=== PATIENT | male | born 1990 | race Caucasian/White ===

== ENCOUNTER 2018-05-29 10:36 | Emergency (ER) | payer SELFPAY ==
--- OUTSIDE RECORDS SUMMARY | 2018-05-29 10:39 | XMS REPORT ---
:1990 Author Organization [facility] Address [address] [place] [address] Dr. Parisi [address] [place] [address] Care Team Providers Name Role Phone CARLA GARCIA CHEYANNE Unavailable Unavailable Problems This patient has no known problems. Allergies, Adverse Reactions, Alerts This patient has no known allergies or adverse reactions. Medications This patient has no known medications. Results Test Description Test Time Test Comments Text Results Atomic Results Result Comments ANAEROBIC CULTURE 2017-07-01 17:00:00 Test Item Value Reference Range Comments CULTURE (BEAKER) (test xbdb=1828) No anaerobes isolated SURGICALLY OBTAINED CULTURE + GRAM [id number] 17:50:00 Test Item Value Reference Range Comments CULTURE (BEAKER) (test qwqd=9573) Clindamycin (test code=10) Erythromycin (test code=4) Linezolid (test code=40) Nitrofurantoin (test code=23) Oxacillin (test code=14) Rifampin (test code=43) Tetracycline (test code=2) Trimethoprim + Sulfamethoxazole (test code=47) Vancomycin (test code=13) CULTURE (BEAKER) (test 4+ Methicillin resistant hgfs=3902) Staphylococcus aureus GRAM STAIN RESULT (BEAKER) No White blood (test kbis=0484) cells seen GRAM STAIN RESULT (BEAKER) 1+ gram positive (test zbnf=[id number]) cocci in pairs VANCOMYCIN LEVEL, [id number] 10:46:00 Test Item Value Reference Range Comments VANCOMYCIN TROUGH (BEAKER) (test kfnv=891) 12.2 ug/mL 10.0-20.0 CBC W/PLT COUNT & AUTO [id number] 06:03:00 Test Item Value Reference Range Comments WHITE BLOOD CELL COUNT (BEAKER) (test tjip=774) 13.9 K/ L 3.5-10.5 RED BLOOD CELL COUNT (BEAKER) (test nnat=669) 3.96 M/ L 4.63-6.08 HEMOGLOBIN (BEAKER) (test lixa=742) 12.2 GM/DL 13.7-17.5 HEMATOCRIT (BEAKER) (test uhdt=822) 37.0 % 40.1-51.0 MEAN CORPUSCULAR VOLUME (BEAKER) (test imuu=826) 93.4 fL 79.0-92.2 MEAN CORPUSCULAR HEMOGLOBIN (BEAKER) (test 30.8 pg 25.7-32.2 nqjs=832) MEAN CORPUSCULAR HEMOGLOBIN CONC (BEAKER) (test 33.0 GM/DL 32.3-36.5 wsgl=691) RED CELL DISTRIBUTION WIDTH (BEAKER) (test 12.3 % 11.6-14.4 ycho=689) PLATELET COUNT (BEAKER) (test wgme=947) 294 K/CU MM 150-450 MEAN PLATELET VOLUME (BEAKER) (test yehr=073) 10.0 fL 9.4-12.4 NUCLEATED RED BLOOD CELLS (BEAKER) (test 0 /100 WBC 0-0 cmux=657) NEUTROPHILS RELATIVE PERCENT (BEAKER) (test 77 % riwx=726) LYMPHOCYTES RELATIVE PERCENT (BEAKER) (test 12 % jzeo=025) MONOCYTES RELATIVE PERCENT (BEAKER) (test 10 % iwfy=035) EOSINOPHILS RELATIVE PERCENT (BEAKER) (test 0 % addm=603) BASOPHILS RELATIVE PERCENT (BEAKER) (test 0 % afnv=188) NEUTROPHILS ABSOLUTE COUNT (BEAKER) (test 10.71 K/ L 1.78-5.38 podm=250) LYMPHOCYTES ABSOLUTE COUNT (BEAKER) (test 1.70 K/ L 1.32-3.57 susn=770) MONOCYTES ABSOLUTE COUNT (BEAKER) (test 1.32 K/ L 0.30-0.82 geoq=448) EOSINOPHILS ABSOLUTE COUNT (BEAKER) (test 0.04 K/ L 0.04-0.54 yeqk=772) BASOPHILS ABSOLUTE COUNT (BEAKER) (test 0.03 K/ L 0.01-0.08 uhmi=675) IMMATURE GRANULOCYTES-RELATIVE PERCENT (BEAKER) 0 % 0-1 (test pztp=0381) BASIC METABOLIC [id number] 05:40:00 Test Item Value Reference Range Comments SODIUM (BEAKER) (test 137 meq/L 136-145 irmg=907) POTASSIUM (BEAKER) (test 4.4 meq/L 3.5-5.1 Specimen slightly xnqj=961) hemolyzed CHLORIDE (BEAKER) (test 103 meq/L 98-107 grzw=773) CO2 (BEAKER) (test 27 meq/L 22-29 ggjy=084) BLOOD UREA NITROGEN 11 mg/dL 7-21 (BEAKER) (test iddi=052) CREATININE (BEAKER) (test 0.80 mg/dL 0.57-1.25 Specimen slightly pqza=541) hemolyzed GLUCOSE RANDOM (BEAKER) 115 mg/dL 70-105 (test opoc=286) CALCIUM (BEAKER) (test 8.8 mg/dL 8.4-10.2 lxbo=916) EGFR (BEAKER) (test 114 mL/min/1.73 sq m ESTIMATED GFR IS NOT vopx=6631) ACCURATE CREATININE CLEARANCE IN PREDICTING GLOMERULAR FILTRATION RATE. ESTIMATED GFR IS NOT APPLICABLE FOR DIALYSIS PATIENTS. [id number] 00:47:00 Test Item Value Reference Range Comments PROTIME (BEAKER) (test qjfl=655) 13.8 seconds 11.7-14.7 INR (BEAKER) (test juzx=030) 1.1 <=5.9 PARTIAL THROMBOPLASTIN TIME (BEAKER) (test 31.4 seconds 22.5-36.0 saql=100) RECOMMENDED COUMADIN/WARFARIN INR THERAPY RANGESSTANDARD DOSE: 2.0 - 3.0 Includes: PROPHYLAXIS forvenous thrombosis, systemic embolization; TREATMENT for venous thrombosis and/or pulmonary embolus.HIGH RISK: Target INR is 2.5-3.5 for patients with mechanical heart valves.BASIC METABOLIC [id number] 00:45: 00 Test Item Value Reference Range Comments SODIUM (BEAKER) (test 135 meq/L 136-145 zbfn=488) POTASSIUM (BEAKER) (test 4.5 meq/L 3.5-5.1 pimy=338) CHLORIDE (BEAKER) (test 102 meq/L 98-107 buyl=734) CO2 (BEAKER) (test 24 meq/L 22-29 rnvt=912) BLOOD UREA NITROGEN 15 mg/dL 7-21 (BEAKER) (test xkoj=977) CREATININE (BEAKER) (test 0.77 mg/dL 0.57-1.25 osaw=256) GLUCOSE RANDOM (BEAKER) 112 mg/dL 70-105 (test gomp=725) CALCIUM (BEAKER) (test 8.6 mg/dL 8.4-10.2 stue=605) EGFR (BEAKER) (test 119 mL/min/1.73 sq m ESTIMATED GFR IS NOT qqbb=6678) ACCURATE CREATININE CLEARANCE IN PREDICTING GLOMERULAR FILTRATION RATE. ESTIMATED GFR IS NOT APPLICABLE FOR DIALYSIS PATIENTS. CBC W/PLT COUNT & AUTO [id number] 00:35:00 Test Item Value Reference Range Comments WHITE BLOOD CELL COUNT (BEAKER) (test uaau=907) 16.0 K/ L 3.5-10.5 RED BLOOD CELL COUNT (BEAKER) (test dndo=489) 4.22 M/ L 4.63-6.08 HEMOGLOBIN (BEAKER) (test avrj=087) 13.3 GM/DL 13.7-17.5 HEMATOCRIT (BEAKER) (test doak=566) 39.4 % 40.1-51.0 MEAN CORPUSCULAR VOLUME (BEAKER) (test xwrv=900) 93.4 fL 79.0-92.2 MEAN CORPUSCULAR HEMOGLOBIN (BEAKER) (test 31.5 pg 25.7-32.2 enob=034) MEAN CORPUSCULAR HEMOGLOBIN CONC (BEAKER) (test 33.8 GM/DL 32.3-36.5 ghew=311) RED CELL DISTRIBUTION WIDTH (BEAKER) (test 12.1 % 11.6-14.4 xhzs=551) PLATELET COUNT (BEAKER) (test mqqg=551) 247 K/CU MM 150-450 MEAN PLATELET VOLUME (BEAKER) (test jmfr=774) 9.8 fL 9.4-12.4 NUCLEATED RED BLOOD CELLS (BEAKER) (test 0 /100 WBC 0-0 omiv=893) NEUTROPHILS RELATIVE PERCENT (BEAKER) (test 75 % fged=140) LYMPHOCYTES RELATIVE PERCENT (BEAKER) (test 11 % igou=085) MONOCYTES RELATIVE PERCENT (BEAKER) (test 13 % wsge=099) EOSINOPHILS RELATIVE PERCENT (BEAKER) (test 0 % wpet=756) BASOPHILS RELATIVE PERCENT (BEAKER) (test 0 % ocki=366) NEUTROPHILS ABSOLUTE COUNT (BEAKER) (test 12.00 K/ L 1.78-5.38 mnkf=874) LYMPHOCYTES ABSOLUTE COUNT (BEAKER) (test 1.73 K/ L 1.32-3.57 hyoy=806) MONOCYTES ABSOLUTE COUNT (BEAKER) (test 2.15 K/ L 0.30-0.82 vprb=133) EOSINOPHILS ABSOLUTE COUNT (BEAKER) (test 0.04 K/ L 0.04-0.54 oujm=471) BASOPHILS ABSOLUTE COUNT (BEAKER) (test 0.05 K/ L 0.01-0.08 sgyu=136) IMMATURE GRANULOCYTES-RELATIVE PERCENT (BEAKER) 0 % 0-1 (test nwzc=9962)
--- OUTSIDE RECORDS SUMMARY | 2018-05-29 10:39 | XMS REPORT | Clinical Summary ---
:1990 Author Organization [facility] Address [address] [place] [address] Phone Care Team Providers Name Role Phone Unavailable Primary Care Provider Unavailable Allergies Active Allergy Reactions Severity Noted Date Comments No Known Drug Allergies 06/27/2017 Current Medications Prescription Sig. Disp. Refills Start End Date Status Date sulfamethoxazole-tri Take 1 tablet by Active methoprim (BACTRIM mouth 2 (two) DS) 800-160 mg per times daily. tablet diphenhydrAMINE Take 25 mg by Active (BENADRYL) 25 mg mouth every 6 tablet (six) hours as needed for Sleep. traMADol-acetaminoph Take 1-2 tablets 06/29/20 Discontinued en (ULTRACET) by mouth every 4 17 37.5-325 mg per (four) hours as tablet needed for Pain Every 4-6 hrs prn . amoxicillin-clavulan Take 1 tablet by 06/29/20 Discontinued ate (AUGMENTIN) mouth every 12 17 875-125 mg per (twelve) hours. tablet HYDROcodone-acetamin Take 1 tablet by 15 tablet 0 07/09/20 ophen (NORCO 10-325) mouth every 4 7 17 10-325 mg per tablet (four) hours as needed for up to 10 days. Max Daily Amount: 6 tablets sulfamethoxazole-tri Take 1 tablet 28 tablet 0 06/29/20 Discontinued methoprim (BACTRIM (160 mg of 7 17 DS) 800-160 mg per trimethoprim tablet total) by mouth 2 (two) times daily for 14 days. sulfamethoxazole-tri Take 1 tablet 28 tablet 0 07/13/20 methoprim (BACTRIM (160 mg of 7 17 DS) 800-160 mg per trimethoprim tablet total) by mouth 2 (two) times daily for 14 days. HYDROcodone-acetamin Take 1 tablet by 06/29/20 Discontinued ophen (NORCO 10-325) mouth every 6 17 10-325 mg per tablet (six) hours as needed for Pain. Active Problems Problem Noted Date Abscess of hand 06/28/2017 Tobacco abuse 06/28/2017 Encounters Date Type Specialty Care Team Description 06/30/2017 Hospital Encounter Jung Ernst MD 06/30/2017 Procedure Pass 06/30/2017 Surgery Jung Ernst, DEBRIDEMENT/I&D,BEN CARRILLO ND EXTREMITY UPPER 06/29/2017 Anesthesia Event Joel Burrell MD 06/28/2017 Procedure Pass 06/28/2017 Surgery Jung Ernst, DEBRIDEMENT/I&D,BEN CARRILLO ND EXTREMITY UPPER 06/27/2017 - Hospital Encounter General Internal Jorge العلي Abscess of 06/29/2017 Medicine MD Reyes hand;Tobacco abuse Carl Flynn MD 06/27/2017 Anesthesia Event Alexandra Pereira MD after 05/28/2017 Social History Tobacco Use Types Packs/Day Years Used Date Current Every Day Smoker Cigarettes 10 Smokeless Tobacco: Never Used Tobacco Cessation: Ready to Quit: Yes; Counseling Given: Yes Comments: uses 5-6 cig per day Alcohol Use Drinks/Week oz/Week Comments No Sex Assigned at Date Recorded Not on file Last Filed Vital Signs Vital Sign Reading Time Taken Blood Pressure 124/75 06/30/2017 8:40 PM 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 Pulse 78 06/30/2017 8:40 PM 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 Temperature 36.4 C (97.5 F) 06/30/2017 8:40 PM 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 Respiratory Rate 16 06/30/2017 8:40 PM 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 Oxygen Saturation 94% 06/30/2017 8:40 PM 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 Inhaled Oxygen Concentration - - Weight 72 kg (158 lb 12.8 oz) 06/30/2017 1:00 PM 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 Height 170.2 cm (5' 7") 06/30/2017 1:00 PM 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 Body Mass Index 24.87 06/30/2017 1:00 PM 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 Plan of Treatment Not on file Procedures Procedure Name Priority Date/Time Associated Diagnosis Comments CLOSURE,WOUND UPPER 06/30/2017 2:55 PM Open wound of hand EXTREMITY 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 except fingers with complication, right, sequela Case Notes Liz approved TF Special Needs (HAND TABLE, TOURNIQUET) DEBRIDEMENT/I&D,WOUND EXTREMITY 06/30/2017 2:55 PM Open wound of hand except UPPER 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 fingers with complication, right, sequela Case Notes Liz approved TF Special Needs (HAND TABLE, TOURNIQUET) DEBRIDEMENT/I&D,WOUND EXTREMITY 06/28/2017 12:00 AM INFECTION/ABSCESS OF RIGHT UPPER 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 HAND after 05/28/2017 Results RHYTHM STRIP - SCAN (06/30/2017 1:41 PM)Vancomycin level, trough (06/29/2017 10 :05 AM) Component Value Ref Range Vancomycin Tr 12.2 10.0 - 20.0 ug/mL Specimen Performing Laboratory Blood - Arm, Left [facility] [address] [place] [address] CBC with platelet count + automated diff (06/29/2017 4:44 AM)Only the most recent of2 resultswithin the time period is included. Component Value Ref Range WBC 13.9 (H) 3.5 - 10.5 K/L RBC 3.96 (L) 4.63 - 6.08 M/L Hemoglobin 12.2 (L) 13.7 - 17.5 GM/DL Hematocrit 37.0 (L) 40.1 - 51.0 % MCV 93.4 (H) 79.0 - 92.2 fL MCH 30.8 25.7 - 32.2 pg MCHC 33.0 32.3 - 36.5 GM/DL RDW 12.3 11.6 - 14.4 % Platelets 294 150 - 450 K/CU MM MPV 10.0 9.4 - 12.4 fL nRBC 0 0 - 0 /100 WBC % Neutros 77 % % Lymphs 12 % % Monos 10 % % Eos 0 % % Baso 0 % # Neutros 10.71 (H) 1.78 - 5.38 K/L # Lymphs 1.70 1.32 - 3.57 K/L # Monos 1.32 (H) 0.30 - 0.82 K/L # Eos 0.04 0.04 - 0.54 K/L # Baso 0.03 0.01 - 0.08 K/L Immature Granulocytes-Relative 0 0 - 1 % Specimen Performing Laboratory Blood [address] [address] CBC with platelet count + automated diff (06/29/2017 4:44 AM)Only the most recent of2 resultswithin the time period is included. Specimen Performing Laboratory Blood Narrative The following orders were created for panel order CBC with platelet count + automated diff. Procedure Abnormality Status --------- ------ CBC with platelet count ...[[id number]]AbnormalFinal result Please view results for these tests on the individual orders. Basic Metabolic Panel (06/29/2017 4:44 AM)Only the most recent of2 resultswithin the time period is included. Component Value Ref Range Sodium 137 136 - 145 meq/L Potassium 4.4Comment: Specimen slightly hemolyzed 3.5 - 5.1 meq/L Chloride 103 98 - 107 meq/L CO2 27 22 - 29 meq/L BUN 11 7 - 21 mg/dL Creatinine 0.80Comment: Specimen slightly hemolyzed 0.57 - 1.25 mg/dL Glucose 115 (H) 70 - 105 mg/dL Calcium 8.8 8.4 - 10.2 mg/dL EGFR 114Comment: ESTIMATED GFR IS NOT ACCURATE mL/min/1.73 sq m CREATININE CLEARANCE IN PREDICTING GLOMERULAR FILTRATION RATE. ESTIMATED GFR IS NOT APPLICABLE FOR DIALYSIS PATIENTS. Specimen Performing Laboratory Blood [address] [address] Anaerobic culture (06/28/2017 1:38 AM) Component Value Ref Range Result No anaerobes isolated Specimen Performing Laboratory Abscess - Hand, [address] [address] Surgically obtained culture + gram stain (06/28/2017 1:38 AM) Component Value Ref Range Result Result 4+ Methicillin resistant Staphylococcus aureus (A) Gram Stain Result No White blood cells seen Gram Stain Result 1+ gram positive cocci in pairs Specimen Performing Laboratory Abscess - [address] [address] Organism Antibiotic Method Susceptibility Methicillin resistant Clindamycin 0.25: Susceptible Staphylococcus aureus Methicillin resistant Erythromycin >=8: Resistant Staphylococcus aureus Methicillin resistant Linezolid 2: Susceptible Staphylococcus aureus Methicillin resistant Oxacillin >=4: Resistant Staphylococcus aureus Methicillin resistant Rifampin <=0.5: Susceptible Staphylococcus aureus Methicillin resistant Tetracycline <=1: Susceptible Staphylococcus aureus Methicillin resistant Trimethoprim + <=10: Susceptible Staphylococcus aureus Sulfamethoxazole Methicillin resistant Vancomycin 1: Susceptible Staphylococcus aureus PT/aPTT (06/28/2017 12:18 AM) Component Value Ref Range Protime 13.8 11.7 - 14.7 seconds INR 1.1 <=5.9 PTT 31.4 22.5 - 36.0 seconds Specimen Performing Laboratory Blood - Arm, [address] [address] Narrative RECOMMENDED COUMADIN/WARFARIN INR THERAPY RANGES STANDARD DOSE: 2.0 - 3.0 Includes: PROPHYLAXIS for venous thrombosis, systemic embolization; TREATMENT for venous thrombosis and/or pulmonary embolus. HIGH RISK: Target INR is 2.5-3.5 for patients with mechanical heart valves. after 05/28/2017
--- NOTE | 2018-05-29 11:07 | EDPHYS ---
Physician Documentation [facility] Name: Kenn Rowan Age: 28 yrs Sex: Male : 1990 Arrival Date: 05/29/2018 Time: 10:37 Bed 17 Private MD: ED Physician Nahed Mendes HPI: 05/29 11:03 This 28 yrs old Male presents to ER via Ambulatory with complaints of Facial ma2 Droop. 11:03 The patient presents to the emergency department with weakness of the. Onset: The ma2 symptoms/episode began/occurred suddenly, 3 day(s) ago. Context: occurred at home. Associated signs and symptoms: Pertinent positives: Pertinent negatives: chills, nausea, neck stiffness, paresthesias, near-syncope, visual field changes, loss of vision. Severity of symptoms: At their worst the symptoms were moderate in the emergency department the symptoms are unchanged. Current symptoms: Currently, the patient is not experiencing any symptoms. The patient has not experienced similar symptoms in the past. Historical: - Allergies: 10:43 No Known Allergies; sv - Home Meds: 10:43 None [Active]; sv - PMHx: 10:43 None; sv - PSHx: 10:43 right hand; sv - Immunization history:: Flu vaccine is not up to date. - Social history:: Smoking status: Patient uses tobacco products, smokes one-half pack cigarettes per day, Patient/guardian denies using alcohol, street drugs, The patient lives with family. - Ebola Screening: : No symptoms or risks identified at this time. - Family history:: not pertinent, pertinent for. ROS: 11:03 Constitutional: Negative for fever, chills, and weight loss. ma2 11:03 Neuro: Positive for facial droop, Negative for altered mental status, dizziness, gait disturbance, headache, hearing loss, speech changes, syncope, tinnitus, tremor, visual changes. 11:03 All other systems are negative. Exam: 11:03 Constitutional: This is a well developed, well nourished patient who is awake, alert, ma2 and in no acute distress. Eyes: Pupils equal round and reactive to light, extra-ocular motions intact. Lids and lashes normal. Conjunctiva and sclera are non-icteric and not injected. Cornea within normal limits. Periorbital areas with no swelling, redness, or edema. Chest/axilla: Normal chest wall appearance and motion. Nontender with no deformity. No lesions are appreciated. Cardiovascular: Regular rate and rhythm with a normal S1 and S2. No gallops, murmurs, or rubs. Normal PMI, no JVD. No pulse deficits. Respiratory: Lungs have equal breath sounds bilaterally, clear to auscultation and percussion. No rales, rhonchi or wheezes noted. No increased work of breathing, no retractions or nasal flaring. Abdomen/GI: Soft, non-tender, with normal bowel sounds. No distension or tympany. No guarding or rebound. No evidence of tenderness throughout. Skin: Warm, dry with normal turgor. Normal color with no rashes, no lesions, and no evidence of cellulitis. 11:03 Neuro: Orientation: to person, place, time \T\ situation. Mentation: is normal, Cranial nerves: facial droop noted on left, with forehead involved. Cerebellar function: is grossly normal, Motor: is normal, Sensation: is normal, Gait: is steady. Vital Signs: 10:43 BP 145 / 91; Pulse 80; Resp 18; Temp 97.6; Pulse Ox 100% ; Weight 69.4 kg; Height 5 ft. sv 7 in. (170.18 cm); Pain 0/10; 10:43 Body Mass Index 23.96 (69.40 kg, 170.18 cm) sv NIH Stroke Scale Scores: 10:45 NIHSS Score: 4 bp MDM: 10:44 Patient medically screened. ma2 11:03 Data reviewed: vital signs, nurses notes, [facility] records. Counseling: I had a ma2 detailed discussion with the patient and/or guardian regarding: the historical points, exam findings, and any diagnostic results supporting the discharge/admit diagnosis, the presence of at least one elevated blood pressure reading (>120/80) during this emergency department visit, the need for outpatient follow up. Administered Medications: No medications were administered Disposition: 05/29/18 11:06 Discharged to Home. Impression: Frye's palsy. - Condition is Stable. - Discharge Instructions: Frye Palsy, Adult. - Prescriptions for NATURAL EYE TEAR - apply 1 drop by OPHTHALMIC route 5 times per day; 1 bottle. Prednisone 20 mg Oral Tablet - take 4 tablet by ORAL route once daily for 7 days; 28 tablet. Acyclovir 400 mg Oral Tablet - take 1 tablet by ORAL route every 8 hours for 7 days; 30 tablet. - Medication Reconciliation Form, Thank You Letter, Antibiotic Education, Prescription Opioid Use form. - Work release form (05/29/18 13:14). bd - Follow up: Private Physician; When: Tomorrow; Reason: Continuance of care. NIH Stroke Scale - NIH Stroke Score Date: 05/29/2018 Time: 10:45 Total Score = 4 1a. Level of Consciousness (LOC) - 0(Alert) 1b. Level of Consciousness (LOC) (Year \T\ Age) - 0(Both) 1c. LOC Commands (Open \T\ Closes Eyes/Delivery Motorcycle Driver) - 1(One) 2. Best Gaze (Lateral Gaze Paresis) - 0(Normal) 3. Visual Field Loss - 0(No visual loss) 4. Facial Palsy - 2(Partial paralysis) 5a. Left Arm: Motor (10-second hold) - 0(No drift) 5b. Right Arm: Motor (10-second hold) - 0(No drift) 6a. Left Leg: Motor (5-second hold - always test supine) - 0(No drift) 6b. Right Leg: Motor (5-second hold - always test supine) - 0(No drift) 7. Limb Ataxia (finger/nose \T\ heel/ca - test with eyes open) - 0(Absent) 8. Sensory Loss (pinprick arms/legs/face) - 0(Normal) 9. Best Language: Aphasia (description/naming/reading) - 0(No aphasia) 10. Dysarthria (speech clarity - read or repeat words) - 1(Mild to Moderate) 11. Extinction and Inattention (visual/tactile/auditory/spatial/personal) - 0(No abnormality) Initials: bp Signatures: Izzy Gonzales RN RN sv Arsen Ash RN RN bp Nahed Mendes MD MD ma2 Dirrim, Barbara bd Corrections: (The following items were deleted from the chart) 11:21 11:06 05/29/2018 11:06 Discharged to Home. Impression: Frye's palsy. Condition bp is Stable. Forms are Medication Reconciliation Form, Thank You Letter, Antibiotic Education, Prescription Opioid Use. Follow up: Private Physician; When: Tomorrow; Reason: Continuance of care. [email or web address]
--- NOTE | 2018-05-29 11:07 | ER ---
Nurse's Notes [facility] Name: Kenn Rowan Age: 28 yrs Sex: Male : 1990 Arrival Date: 05/29/2018 Time: 10:37 Bed 17 Private MD: Diagnosis: Frye's palsy Presentation: 05/29 10:41 Presenting complaint: Patient states: left sided facial droop, unable to close left sv eye, slurred speech since . Pt went to urgent care Tuesday for a FB in right eye. Transition of care: patient was not received from another setting of care. Onset of symptoms was May 25, 2018. Care prior to arrival: None. 10:41 Method Of Arrival: Ambulatory sv 10:41 Acuity: KYLER 3 sv 11:20 No acute neurological deficit is noted. Pre-hospital glucose is not applicable to this bp patient. Risk Assessment: Do you want to hurt yourself or someone else? Patient reports no desire to harm self or others. Initial Sepsis Screen: Does the patient meet any 2 criteria? No. Patient's initial sepsis screen is negative. Does the patient have a suspected source of infection? No. Patient's initial sepsis screen is negative. Triage Assessment: 11:20 The onset of the patients symptoms was May 25, 2018 at 06:00. General: Appears in bp no apparent distress. comfortable. 11:21 General: Appears Behavior is calm, cooperative, appropriate for age. Neuro: Reports bp paresthesias in forehead, left cheek, left eye and left jaw. Stroke Activation: Symptom onset > 6 hours Physician: Stroke Attending; Name: ; Notified At: ; Arrived At: Physician: Chief Stroke Resident; Name: ; Notified At: ; Arrived At: Physician: Stroke Resident; Name: ; Notified At: ; Arrived At: Physician: ED Attending; Name: ; Notified At: ; Arrived At: Physician: ED Resident; Name: ; Notified At: ; Arrived At: Historical: - Allergies: 10:43 No Known Allergies; sv - Home Meds: 10:43 None [Active]; sv - PMHx: 10:43 None; sv - PSHx: 10:43 right hand; sv - Immunization history:: Flu vaccine is not up to date. - Social history:: Smoking status: Patient uses tobacco products, smokes one-half pack cigarettes per day, Patient/guardian denies using alcohol, street drugs, The patient lives with family. - Ebola Screening: : No symptoms or risks identified at this time. - Family history:: not pertinent, pertinent for. Screenin:49 Abuse screen: Denies threats or abuse. Denies injuries from another. Nutritional bp screening: No deficits noted. Tuberculosis screening: No symptoms or risk factors identified. Fall Risk None identified. Assessment: 10:45 The patient has not been NPO before screening. The patient is alert, and able to follow bp commands. The patient exhibits slurred or garbled speech. The patient is not exhibiting difficulty speaking. The patient does not exhibit difficulty understanding words. The patient is able to swallow own secretions with no drooling or need for suction. Patient tolerated one teaspoon of water. No drooling, immediate coughing, gurgling, or clearing of the throat was noted. The patient tolerated 90mL of water. No drooling, immediate coughing, gurgling, or clearing of the throat was noted. The patient passed the bedside swallow screening. Oral medications may be given as ordered. Contact Physician for further diet orders. Provider notified of bedside swallow screening results: Nahed Mendes MD. T-PA (Activase) Screening: Contraindications: Patient reports onset of signs and symptoms of stroke greater than 6 hours ago: Yes. General: Appears in no apparent distress. comfortable, Behavior is calm, cooperative, appropriate for age. Pain: Denies pain. Neuro: Level of Consciousness is awake, alert, obeys commands, Oriented to person, place, time, situation, Appropriate for age [employer]ne[employer] are equal bilaterally Moves all extremities. Full function Gait is steady, Speech is slurred, Facial droop on right, Pupils are PERRLA. Cardiovascular: Capillary refill < 3 seconds Patient's skin is warm and dry. Respiratory: Airway is patent Respiratory effort is even, unlabored, Respiratory pattern is regular. GI: No signs and/or symptoms were reported involving the gastrointestinal system. : No signs and/or symptoms were reported regarding the genitourinary system. EENT: NO EYE CLOSING OR BROW LIFT ON RIGHT. Derm: No deficits noted. Musculoskeletal: Circulation, motion, and sensation intact. Range of motion: intact in all extremities. 11:18 Reassessment: PT D/C HOME AMBULATORY, DX WITH FRYE'S PALSY. bp Vital Signs: 10:43 BP 145 / 91; Pulse 80; Resp 18; Temp 97.6; Pulse Ox 100% ; Weight 69.4 kg; Height 5 ft. sv 7 in. (170.18 cm); Pain 0/10; 10:43 Body Mass Index 23.96 (69.40 kg, 170.18 cm) sv NIH Stroke Scale Scores: 10:45 NIHSS Score: 4 bp ED Course: 10:37 Patient arrived in ED. as 10:42 Triage completed. sv 10:43 Arm band placed on Patient placed in an exam room, on a stretcher. sv 10:44 Nahed Mendes MD is Attending Physician. ma2 10:45 Arsen Ash, STEPHANIE is Primary Nurse. bp 10:49 Patient has correct armband on for positive identification. Bed in low position. Call bp light in reach. Side rails up X2. 11:19 No provider procedures requiring assistance completed. Patient did not have IV access bp during this emergency room visit. Administered Medications: No medications were administered Outcome: 11:06 Discharge ordered by . ma2 11:19 Discharged to home ambulatory. bp 11:19 Condition: stable 11:19 Discharge instructions given to patient, Instructed on discharge instructions, follow up and referral plans. medication usage, Demonstrated understanding of instructions, follow-up care, medications, Prescriptions given X 3. 11:21 Patient left the ED. bp NIH Stroke Scale - NIH Stroke Score Date: 05/29/2018 Time: 10:45 Total Score = 4 1a. Level of Consciousness (LOC) - 0(Alert) 1b. Level of Consciousness (LOC) (Year \T\ Age) - 0(Both) 1c. LOC Commands (Open \T\ Closes Eyes/Massage Coordinator) - 1(One) 2. Best Gaze (Lateral Gaze Paresis) - 0(Normal) 3. Visual Field Loss - 0(No visual loss) 4. Facial Palsy - 2(Partial paralysis) 5a. Left Arm: Motor (10-second hold) - 0(No drift) 5b. Right Arm: Motor (10-second hold) - 0(No drift) 6a. Left Leg: Motor (5-second hold - always test supine) - 0(No drift) 6b. Right Leg: Motor (5-second hold - always test supine) - 0(No drift) 7. Limb Ataxia (finger/nose \T\ heel/ca - test with eyes open) - 0(Absent) 8. Sensory Loss (pinprick arms/legs/face) - 0(Normal) 9. Best Language: Aphasia (description/naming/reading) - 0(No aphasia) 10. Dysarthria (speech clarity - read or repeat words) - 1(Mild to Moderate) 11. Extinction and Inattention (visual/tactile/auditory/spatial/personal) - 0(No abnormality) Initials: bp Signatures: Izzy Gonzales, STEPHANIE RN Eloisa Baig Brian, STEPHANIE RN Nahed Ocampo MD MD ma2
== END 2018-05-29 11:21 | disposition home or self-care (01) ==
LOC: ER 10:36
DX: G51.0 Bell's palsy (principal); F17.210 Nicotine dependence, cigarettes, uncomplicated
CPT/HCPCS: 99282